=== PATIENT | female | born 1990 | race Caucasian/White ===

== ENCOUNTER 2019-10-21 14:15 | Emergency (ER) | payer MEDICAID ==
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
== END 2019-10-21 15:20 ==
LOC: LL.ED 14:15
DX: F41.8 Other specified anxiety disorders (principal)
CPT/HCPCS: 99284

== ENCOUNTER 2021-03-02 03:15 | Observation (INO) | payer MEDICAID ==
--- NOTE | 2021-03-02 03:29 | EDM.PDOC ---
ED HPI GENERAL MEDICAL PROBLEM - General Chief Complaint: Abdominal Pain Stated Complaint: Abd pain Time Seen by Provider: 03/02/21 03:25 Source of Information: Reports: Patient, Family (), Old Records ([facility] EMR. No paper hospital chart available.) History Limitations: Reports: No Limitations - History of Present Illness INITIAL COMMENTS - FREE TEXT/NARRATIVE: Patient was brought to the emergency room via private automobile by her for evaluation of 8/10 diffuse abdominal pain and cramping, which are occurring on an intermittent basis since about 11 AM yesterday morning. She has had similar type symptoms in the past with previous negative CT scan of the abdomen and pelvis. Her last oral intake was at 5 PM yesterday afternoon when she had tacos, however at least 10 episodes since onset of her symptoms yesterday morning. She has not taken any medications for symptoms to this point, however food intake and Sprite seem to help her symptoms? Her symptoms have worsened since about 2 AM this morning. No recent history of heartburn, diarrhea, melena, gross hematochezia, or any food intolerance, including fatty foods, etc. with normal bowel movement about 2-3 days ago. She denies any known exposure to infection, food poisoning, etc. The patient also denies any recent fever, cough, wheezing, dyspnea, etc.. The patient denies any chest pain/pressure, heart flutter, dizziness, orthostasis, orthopnea, diaphoresis, paresthesias, recent decreased exercise tolerance, or any other anginal-type symptoms. Onset: Gradual Onset Date: 03/01/21 Onset Time: 11:00 Duration: Getting Worse, Intermittent Location: Reports: Abdomen. Denies: Head, Face, Neck, Chest, Back, Pelvis, Upper Extremity, Left, Upper Extremity, Right, Radiates to Quality: Reports: Same as Previous Episode, Other (Cramping) Severity: Severe Improves with: Reports: None Worsens with: Reports: None Context: Reports: Other (As above). Denies: Sick Contact, Trauma Associated Symptoms: Reports: Nausea/Vomiting. 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 [No Known Home Meds] 04/08/20 [History] . [No Known Home Meds] 04/25/20 [History] Past Medical History HEENT History: Reports: Impaired Vision, Other (See Below). Denies: Allergic Rhinitis, Hard of Hearing, Otitis Media, Retinal Detachment Other HEENT History: The patient wears soft contact lenses and glasses. Cardiovascular History: Reports: Hypertension, Other (See Below). Denies: Afib, Aneurysm, Arrhythmia, Blood Clots/VTE/DVT, CAD, Heart Murmur, High Cholesterol, Syncope Other Cardiovascular History: She does not know her cholesterol status. Respiratory History: Reports: None. Denies: Asthma, Bronchitis, Recurrent, COPD, Intubation, Previous, PE, Pneumothorax, TB Gastrointestinal History: Reports: Diverticulosis, Other (See Below). Denies: Celiac Disease, Cholelithiasis, Chronic Constipation, Chronic Diarrhea, Fecal Incontinence, Gastritis, GERD, GI Bleed, Hepatitis, Inflammatory Bowel Disease, Irritable Bowel Syndrome, Jaundice, Pancreatitis, PUD Other Gastrointestinal History: Recurrent nonspecific abdominal pain with no history of diverticulitis. Genitourinary History: Reports: None. 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 Denies: Dysfunctional Uterine Bleeding, Endometriosis, Spontaneous : 1 Para: 1 LMP (Approximate): Other (See Below) Other PAINT MIXER MACHINE History: LMP 1 week ago, which was normal. Full term without complications during pregnancies or deliveries Musculoskeletal History: Reports: Fracture, Other (See Below). Denies: Amputation, Arthritis, Back Pain, Chronic, Gout, Neck Pain, Chronic, Osteoarthritis, RA, SLE Other Musculoskeletal History: Phalangeal fracture of digit number one of the right foot in 2008. Neurological History: Reports: None. Denies: Cerebral Aneurysms, Concussion, CVA, Headaches, Chronic, Head Trauma, Migraines, MS, Parkinson's, Seizure, TIA, Vertigo Psychiatric History: Reports: Anxiety, Depression, Psych Hospitalization(s) ([facility] on 10/21/2019 with suspected drug abuse at that time, which the patient denies). Denies: Abuse, Victim of, ADD, ADHD, Addiction, PTSD, Suicide Attempt, Suicidal Ideation Endocrine/Metabolic History: Reports: None. Denies: Diabetes, Gestational, Diabetes, Type I, Diabetes, Type II, Diabetes Mellitus, Type 3c, Hypothyroidism, IDDM, Obesity/BMI 30+ Hematologic History: Reports: None. Denies: Anemia, Blood Transfusion(s), Iron Deficiency Immunologic History: Reports: None. Denies: AIDS, HIV, SLE Oncologic (Cancer) History: Reports: None. Denies: Basal Cell Carcinoma, Breast, Cervix, Colon, Hodgkin's Lymphoma, Leukemia, Lymphoma, Malignant Melanoma, Non-Hodgkin's Lymphoma, Ovarian, Squamous Cell Carcinoma, Uterine Dermatologic History: Reports: Other (See Below). Denies: Eczema, Psoriasis Other Dermatologic History: Acne vulgaris - Infectious Disease History Infectious Disease History: Reports: Chicken Pox. Denies: C-Difficile, Measles, Meningitis, Mononucleosis, MRSA, Mumps, Novel Coronavirus (She has not had her COVID-19 immunizations.), Pertussis (Whooping Cough), Rheumatic Fever, Rubella, Scarlet Fever, Shingles, VRE - Past Surgical History Head Surgeries/Procedures: Reports: None HEENT Surgical History: Reports: Oral Surgery, Other (See Below). Denies: Adenoidectomy, Detached Retina, Eye Surgery, Laser Surgery, LASIK, Myringotomy w Tube(s), Naso-Sinus Surgery, Tonsillectomy Other HEENT Surgeries/Procedures: Matheny teeth extraction x2 at age 19 with additional multiple teeth extractions. Cardiovascular Surgical History: Reports: None. Denies: Varicose Respiratory Surgical History: Reports: None. Denies: Thoracentesis GI Surgical History: Denies: Appendectomy, Cholecystectomy, Colonoscopy, EGD, Hernia, Abdominal, Hernia, Inguinal, Hernia Repair/Other Female Surgical History: Reports: None. Denies: Breast Biopsy, Section, D&C, Hysterectomy, Oophorectomy, Salpingo-Oophorectomy, Tubal Ligation Endocrine Surgical History: Reports: None. Denies: Thyroid Biopsy Neurological Surgical History: Reports: None. Denies: C-Spine, Discectomy, Laminectomy, Lumbar Spine, Sacral Spine, Spinal Fusion, Thoracic Spine, Vertebroplasty Musculoskeletal Surgical History: Reports: ORIF, Other (See Below). Denies: Arthroscopic Procedure, Carpal Tunnel, Ganglion Cyst, Shoulder Surgery Other Musculoskeletal Surgeries/Procedures:: ORIF of right toe fracture in 2009. Oncologic Surgical History: Reports: None Dermatological Surgical History: Reports: None - Past Imaging History Past Imaging History: Reports: CAT Scan (CT of the abdomen and pelvis on 04/25/2020.), Ultrasound (Pelvic on 04/25/2020.) Social & Family History - Family History Family Medical History: Unobtainable (Patient was adopted.) - Tobacco Use Tobacco Use Status *Q: Current Every Day Tobacco User Tobacco Use Within Last Twelve Months: Cigarettes Years of Tobacco use: 18 Packs/Tins Daily: 0.5 Packs/Tins Daily Comment: Started smoking at about age 12 with maximum use of 1 pack/day. No tobacco use for 1 week. Used Tobacco, but Quit: Yes Smoking Cessation Information Provided To Patient: Yes Second Hand Smoke Exposure: No Second Hand Smoke Education Provided: No - Caffeine Use Caffeine Use: Reports: None. Denies: Coffee, Energy Drinks, Soda, Tea - Alcohol Use Alcohol Use History: No Days Per Week of Alcohol Use: 0 Number of Drinks Per Day: 0 Number of Drinks Per Day Comment: No previous DWIs, problems with alcohol abuse, etc. Total Drinks Per Week: 0 Alcohol Use in Last Twelve Months: No - Recreational Drug Use Recreational Drug Use: No Drug Use in Last 12 Months: No Recreational Drug Type: Denies: Amphetamines (Speed), Cocaine, Heroin, Inhalants (Glues, Solvents, Aerosols), LSD (Acid), Marijuana/Hashish, Methamphetamine, Morphine, Oxycodone - Living Situation & Occupation Living situation: Reports: (2012), with Family ( with her son being adopted by the patient's father secondary special needs of her son) Occupation: Unemployed ED ROS GENERAL - Review of Systems Review Of Systems: Comprehensive ROS is negative, except as noted in HPI. ED EXAM, GI/ABD - Physical Exam Exam: See Below Exam Limited By: No Limitations General Appearance: Alert, WD/WN, No Apparent Distress, Anxious (Moderate) Eyes: Bilateral: Normal Appearance (Soft contact lenses, no vertigo or nystagmus), EOMI (PERRLA) Ears: Normal External Exam, Normal Canal, Hearing Grossly Normal, Normal TMs Nose: Normal Inspection, Normal Mucosa, No Blood Throat/Mouth: Normal Lips, Normal Gums, Normal Oropharynx, Normal Voice, No Airway Compromise. No: Normal Teeth (Multiple missing teeth, including broken teeth with no acute caries), Dysphagia, Perioral Cyanosis Head: Atraumatic, Normocephalic. No: Facial Swelling, Facial Tenderness, Sinus Tenderness Neck: Normal Inspection, Supple, Non-Tender, Full Range of Motion. No: Carotid Bruit, Lymphadenopathy (L), Lymphadenopathy (R), Thyromegaly Respiratory/Chest: No Respiratory Distress, Lungs Clear, Normal Breath Sounds, No Accessory Muscle Use, Chest Non-Tender. No: Pleural Rub, Retractions Cardiovascular: Normal Peripheral Pulses, Regular Rate, Rhythm, No Edema, No Gallop, No JVD, No Murmur, No Rub. No: Gallop/S3, Gallop/S4, Friction Rub GI/Abdominal Exam: Normal Bowel Sounds, Soft, Non-Tender, No Organomegaly, No Distention, No Abnormal Bruit, No Mass, Pelvis Stable. No: Guarding, Rebound (Female) Exam: Deferred Rectal (Female) Exam: Deferred Back Exam: Normal Inspection, Full Range of Motion. No: CVA Tenderness (L), CVA Tenderness (R), Muscle Spasm Extremities: Normal Inspection, Normal Range of Motion, Non-Tender, No Pedal Edema, Normal Capillary Refill. No: Cristiana's Sign Neurological: Alert, Oriented, CN II-XII Intact, Normal Cognition, Normal Gait, Normal Reflexes (Negative Babinski's), No Motor/Sensory Deficits Psychiatric: Anxious (Moderate), Depressed Mood (Mild) Skin Exam: Warm, Dry, Intact, Normal Color, No Rash, Tattoo(s) (Multiple), Other (Moderate cystic acne vulgaris especially in the facial region). No: Diaphoretic, Wound/Incision Lymphatic: No Adenopathy Course - Vital Signs Last Recorded V/S: Last Vital Signs Temp 36.9 C 03/02/21 03:21 Pulse 64 03/02/21 03:21 Resp 16 03/02/21 03:21 BP 118/63 03/02/21 03:21 Pulse Ox 100 03/02/21 03:21 Vital Signs - 24 hr 03/02/21 03:21 Temperature [ 36.9 C Temporal] Pulse, 64 Peripheral [ Right Pulse Oximetry] Respiratory 16 Rate Blood Pressure 118/63 [Right Upper Arm] O2 Sat by Pulse 100 Oximetry - Orders/Labs/Meds Orders: Active Orders 24 hr Category Date Time Status Peripheral IV Care [RC] . DIRECTED Care 03/02/21 03:32 Active Nothing Per Oral Diet [DIET] Diet 03/02/21 Breakfast Active Abdomen Series w Chest 1V [CR] Stat Exams 03/02/21 03:30 Ordered CULTURE URINE [RM] Stat Lab 03/02/21 03:45 Received Sodium Chloride 0.9% [Saline Flush] Med 03/02/21 03:30 Active 10 ml FLUSH ASDIRECTED PRN Obtain Past Medical Record [OM.PC] Urgent Oth 03/02/21 03:30 Active Peripheral IV Insertion Adult [OM.PC] Stat Oth 03/02/21 03:30 Ordered Resuscitation Status Stat Resus Stat 03/02/21 03:30 Ordered Medication Orders Sodium Chloride (Sodium Chloride 0.9% 10 Ml Syringe) 10 ml FLUSH ASDIRECTED PRN PRN Reason: Keep Vein Open Last Admin: 03/02/21 03:49 Dose: 10 ml Documented by: ERIN Labs: Laboratory Tests 03/02/21 03/02/21 03/02/21 Range/Units 03:40 03:40 03:40 WBC 13.1 H (4.0-10.2) K/uL RBC 4.37 (3.77-5.09) M/uL Hgb 13.0 D (11.7-15.5) g/dL Hct 39.0 (34.0-46.0) % MCV 89.2 (84.0-98.0) fL MCH 29.7 (28.2-33.3) pg MCHC 33.3 (31.7-36.0) g/dL RDW 13.1 (11.2-14.1) % Plt Count 240 (150-350) K/uL Neut % (Auto) 70.5 (45.0-80.0) % Lymph % (Auto) 19.1 (10.0-50.0) % [place] % (Auto) 9.4 (2.0-14.0) % Eos % (Auto) 0.8 (0.0-5.0) % Baso % (Auto) 0.2 (0.0-2.0) % Neut # (Auto) 9.26 H (1.40-7.00) K/uL Lymph # (Auto) 2.51 (0.50-3.50) K/uL [place] # (Auto) 1.23 H (0.00-1.00) K/uL Eos # (Auto) 0.10 (0.00-0.50) K/uL Baso # (Auto) 0.02 (0.00-0.20) K/uL PT 17.2 H (9.5-12.0) SEC INR 1.7 APTT 39.1 H (24.5-32.8) SEC Sodium (136-145) mmol/L Potassium (3.5-5.1) mmol/L Chloride (98-107) mmol/L Carbon Dioxide (21.0-32.0) mmol/L BUN (7-18) mg/dL Creatinine (0.51-1.17) mg/dL Est Cr Clr Drug Dosing mL/min Estimated GFR (MDRD) mL/min Glucose (70-99) mg/dL Lactic Acid (0.4-2.0) mmol/L Uric Acid (2.6-7.2) mg/dL Calcium (8.5-10.1) mg/dL Magnesium (1.8-2.4) mg/dL Total Bilirubin (0.2-1.0) mg/dL AST (15-37) U/L ALT (12-78) U/L Alkaline Phosphatase (46-116) IU/L Total Protein (6.4-8.2) g/dL Albumin (3.4-5.0) g/dL Amylase 79 (25-115) U/L Lipase (73-393) U/L HCG, Qual (NEGATIVE) Specimen Type Urine Color Urine Appearance Urine pH (5.0-9.0) Ur Specific [place] (1.005-1.030) Urine Protein (NEGATIVE) mg/dL Urine Glucose (UA) (NEGATIVE) mg/dL Urine Ketones (NEGATIVE) mg/dL Urine Occult Blood (NEGATIVE) Urine Nitrite (NEGATIVE) Urine Bilirubin (NEGATIVE) Urine Urobilinogen (0.2-1.0) E.U./dL Ur Leukocyte Esterase (NEGATIVE) Urine RBC /HPF Urine WBC /HPF Ur Epithelial Cells /LPF Urine Bacteria (NONE TO FEW) /HPF Urine Mucus (NEGATIVE) /LPF Urine Opiates Screen (NEGATIVE) Ur Buprenorphine Scrn (NEGATIVE) Ur Oxycodone Screen (NEGATIVE) Ur EDDP (Meth Metab) (NEGATIVE) Ur Barbiturates Screen (NEGATIVE) Ur Tricyclics Screen (NEGATIVE) Ur Amphetamine Screen (NEGATIVE) U Methamphetamines Scrn (NEGATIVE) Urine MDMA Screen (NEGATIVE) U Benzodiazepines Scrn (NEGATIVE) U Cocaine Metab Screen (NEGATIVE) U Marijuana (THC) Screen (NEGATIVE) Ethyl Alcohol (0.000-0.080) g/dL SARS-CoV-2 RNA (DAMIAN) (NEGATIVE) 03/02/21 03/02/21 03/02/21 Range/Units 03:40 03:40 03:40 WBC (4.0-10.2) K/uL RBC (3.77-5.09) M/uL Hgb (11.7-15.5) g/dL Hct (34.0-46.0) % MCV (84.0-98.0) fL MCH (28.2-33.3) pg MCHC (31.7-36.0) g/dL RDW (11.2-14.1) % Plt Count (150-350) K/uL Neut % (Auto) (45.0-80.0) % Lymph % (Auto) (10.0-50.0) % [place] % (Auto) (2.0-14.0) % Eos % (Auto) (0.0-5.0) % Baso % (Auto) (0.0-2.0) % Neut # (Auto) (1.40-7.00) K/uL Lymph # (Auto) (0.50-3.50) K/uL [place] # (Auto) (0.00-1.00) K/uL Eos # (Auto) (0.00-0.50) K/uL Baso # (Auto) (0.00-0.20) K/uL PT (9.5-12.0) SEC INR APTT (24.5-32.8) SEC Sodium 140 (136-145) mmol/L Potassium 3.8 (3.5-5.1) mmol/L Chloride 103 (98-107) mmol/L Carbon Dioxide 24.0 (21.0-32.0) mmol/L BUN 12 (7-18) mg/dL Creatinine 0.66 (0.51-1.17) mg/dL Est Cr Clr Drug Dosing 112.15 mL/min Estimated GFR (MDRD) > 60 mL/min Glucose 94 (70-99) mg/dL Lactic Acid 1.6 (0.4-2.0) mmol/L Uric Acid 3.1 (2.6-7.2) mg/dL Calcium 8.3 L (8.5-10.1) mg/dL Magnesium 1.8 (1.8-2.4) mg/dL Total Bilirubin 0.5 (0.2-1.0) mg/dL AST 33 (15-37) U/L ALT 44 (12-78) U/L Alkaline Phosphatase 96 (46-116) IU/L Total Protein 7.4 (6.4-8.2) g/dL Albumin 3.6 (3.4-5.0) g/dL Amylase (25-115) U/L Lipase 68 L (73-393) U/L HCG, Qual Negative (NEGATIVE) Specimen Type Urine Color Urine Appearance Urine pH (5.0-9.0) Ur Specific [place] (1.005-1.030) Urine Protein (NEGATIVE) mg/dL Urine Glucose (UA) (NEGATIVE) mg/dL Urine Ketones (NEGATIVE) mg/dL Urine Occult Blood (NEGATIVE) Urine Nitrite (NEGATIVE) Urine Bilirubin (NEGATIVE) Urine Urobilinogen (0.2-1.0) E.U./dL Ur Leukocyte Esterase (NEGATIVE) Urine RBC /HPF Urine WBC /HPF Ur Epithelial Cells /LPF Urine Bacteria (NONE TO FEW) /HPF Urine Mucus (NEGATIVE) /LPF Urine Opiates Screen (NEGATIVE) Ur Buprenorphine Scrn (NEGATIVE) Ur Oxycodone Screen (NEGATIVE) Ur EDDP (Meth Metab) (NEGATIVE) Ur Barbiturates Screen (NEGATIVE) Ur Tricyclics Screen (NEGATIVE) Ur Amphetamine Screen (NEGATIVE) U Methamphetamines Scrn (NEGATIVE) Urine MDMA Screen (NEGATIVE) U Benzodiazepines Scrn (NEGATIVE) U Cocaine Metab Screen (NEGATIVE) U Marijuana (THC) Screen (NEGATIVE) Ethyl Alcohol (0.000-0.080) g/dL SARS-CoV-2 RNA (DAMIAN) (NEGATIVE) 03/02/21 03/02/21 03/02/21 Range/Units 03:40 03:45 03:45 WBC (4.0-10.2) K/uL RBC (3.77-5.09) M/uL Hgb (11.7-15.5) g/dL Hct (34.0-46.0) % MCV (84.0-98.0) fL MCH (28.2-33.3) pg MCHC (31.7-36.0) g/dL RDW (11.2-14.1) % Plt Count (150-350) K/uL Neut % (Auto) (45.0-80.0) % Lymph % (Auto) (10.0-50.0) % [place] % (Auto) (2.0-14.0) % Eos % (Auto) (0.0-5.0) % Baso % (Auto) (0.0-2.0) % Neut # (Auto) (1.40-7.00) K/uL Lymph # (Auto) (0.50-3.50) K/uL [place] # (Auto) (0.00-1.00) K/uL Eos # (Auto) (0.00-0.50) K/uL Baso # (Auto) (0.00-0.20) K/uL PT (9.5-12.0) SEC INR APTT (24.5-32.8) SEC Sodium (136-145) mmol/L Potassium (3.5-5.1) mmol/L Chloride (98-107) mmol/L Carbon Dioxide (21.0-32.0) mmol/L BUN (7-18) mg/dL Creatinine (0.51-1.17) mg/dL Est Cr Clr Drug Dosing mL/min Estimated GFR (MDRD) mL/min Glucose (70-99) mg/dL Lactic Acid (0.4-2.0) mmol/L Uric Acid (2.6-7.2) mg/dL Calcium (8.5-10.1) mg/dL Magnesium (1.8-2.4) mg/dL Total Bilirubin (0.2-1.0) mg/dL AST (15-37) U/L ALT (12-78) U/L Alkaline Phosphatase (46-116) IU/L Total Protein (6.4-8.2) g/dL Albumin (3.4-5.0) g/dL Amylase (25-115) U/L Lipase (73-393) U/L HCG, Qual (NEGATIVE) Specimen Type Urinvoid Urine Color Yellow Urine Appearance Cloudy Urine pH 5.5 (5.0-9.0) Ur Specific [place] >= 1.030 (1.005-1.030) Urine Protein 30 H (NEGATIVE) mg/dL Urine Glucose (UA) Negative (NEGATIVE) mg/dL Urine Ketones Negative (NEGATIVE) mg/dL Urine Occult Blood Trace-intact H (NEGATIVE) Urine Nitrite Negative (NEGATIVE) Urine Bilirubin Small H (NEGATIVE) Urine Urobilinogen 0.2 (0.2-1.0) E.U./dL Ur Leukocyte Esterase Negative (NEGATIVE) Urine RBC 5-10 H /HPF Urine WBC 0-5 /HPF Ur Epithelial Cells Few /LPF Urine Bacteria Occasional (NONE TO FEW) /HPF Urine Mucus Occasional H (NEGATIVE) /LPF Urine Opiates Screen Negative (NEGATIVE) Ur Buprenorphine Scrn Negative (NEGATIVE) Ur Oxycodone Screen Negative (NEGATIVE) Ur EDDP (Meth Metab) Negative (NEGATIVE) Ur Barbiturates Screen Negative (NEGATIVE) Ur Tricyclics Screen Negative (NEGATIVE) Ur Amphetamine Screen Negative (NEGATIVE) U Methamphetamines Scrn Negative (NEGATIVE) Urine MDMA Screen Positive H (NEGATIVE) U Benzodiazepines Scrn Negative (NEGATIVE) U Cocaine Metab Screen Negative (NEGATIVE) U Marijuana (THC) Screen Positive H (NEGATIVE) Ethyl Alcohol < 3.000 H (0.000-0.080) g/dL SARS-CoV-2 RNA (DAMIAN) (NEGATIVE) 03/02/21 Range/Units 03:48 WBC (4.0-10.2) K/uL RBC (3.77-5.09) M/uL Hgb (11.7-15.5) g/dL Hct (34.0-46.0) % MCV (84.0-98.0) fL MCH (28.2-33.3) pg MCHC (31.7-36.0) g/dL RDW (11.2-14.1) % Plt Count (150-350) K/uL Neut % (Auto) (45.0-80.0) % Lymph % (Auto) (10.0-50.0) % [place] % (Auto) (2.0-14.0) % Eos % (Auto) (0.0-5.0) % Baso % (Auto) (0.0-2.0) % Neut # (Auto) (1.40-7.00) K/uL Lymph # (Auto) (0.50-3.50) K/uL [place] # (Auto) (0.00-1.00) K/uL Eos # (Auto) (0.00-0.50) K/uL Baso # (Auto) (0.00-0.20) K/uL PT (9.5-12.0) SEC INR APTT (24.5-32.8) SEC Sodium (136-145) mmol/L Potassium (3.5-5.1) mmol/L Chloride (98-107) mmol/L Carbon Dioxide (21.0-32.0) mmol/L BUN (7-18) mg/dL Creatinine (0.51-1.17) mg/dL Est Cr Clr Drug Dosing mL/min Estimated GFR (MDRD) mL/min Glucose (70-99) mg/dL Lactic Acid (0.4-2.0) mmol/L Uric Acid (2.6-7.2) mg/dL Calcium (8.5-10.1) mg/dL Magnesium (1.8-2.4) mg/dL Total Bilirubin (0.2-1.0) mg/dL AST (15-37) U/L ALT (12-78) U/L Alkaline Phosphatase (46-116) IU/L Total Protein (6.4-8.2) g/dL Albumin (3.4-5.0) g/dL Amylase (25-115) U/L Lipase (73-393) U/L HCG, Qual (NEGATIVE) Specimen Type Urine Color Urine Appearance Urine pH (5.0-9.0) Ur Specific [place] (1.005-1.030) Urine Protein (NEGATIVE) mg/dL Urine Glucose (UA) (NEGATIVE) mg/dL Urine Ketones (NEGATIVE) mg/dL Urine Occult Blood (NEGATIVE) Urine Nitrite (NEGATIVE) Urine Bilirubin (NEGATIVE) Urine Urobilinogen (0.2-1.0) E.U./dL Ur Leukocyte Esterase (NEGATIVE) Urine RBC /HPF Urine WBC /HPF Ur Epithelial Cells /LPF Urine Bacteria (NONE TO FEW) /HPF Urine Mucus (NEGATIVE) /LPF Urine Opiates Screen (NEGATIVE) Ur Buprenorphine Scrn (NEGATIVE) Ur Oxycodone Screen (NEGATIVE) Ur EDDP (Meth Metab) (NEGATIVE) Ur Barbiturates Screen (NEGATIVE) Ur Tricyclics Screen (NEGATIVE) Ur Amphetamine Screen (NEGATIVE) U Methamphetamines Scrn (NEGATIVE) Urine MDMA Screen (NEGATIVE) U Benzodiazepines Scrn (NEGATIVE) U Cocaine Metab Screen (NEGATIVE) U Marijuana (THC) Screen (NEGATIVE) Ethyl Alcohol (0.000-0.080) g/dL SARS-CoV-2 RNA (DAMIAN) Negative (NEGATIVE) Urine specimen set up for culture and sensitivity. Meds: Medications Generic Name Dose Route Start Last Admin Trade Name Freq PRN Reason Stop Dose Admin Sodium Chloride 10 ml 03/02/21 03:30 03/02/21 03:49 Sodium Chloride 0.9% 10 Ml Syringe FLUSH 10 ml ASDIRECTED PRN Administration Keep Vein Open Discontinued Medications Generic Name Dose Route Start Last Admin Trade Name Freq PRN Reason Stop Dose Admin Al Hydroxide/Mg Hydroxide 30 ml 03/02/21 04:21 03/02/21 04:35 Gi Cocktail Oral Solution 30 Ml PO 03/02/21 04:22 30 ml ONETIME ONE Administration Famotidine 40 mg 03/02/21 03:30 03/02/21 03:48 Famotidine 20 Mg/2 Ml Sdv IVPUSH 03/02/21 03:31 40 mg ONETIME ONE Administration Lactated Ringer's 1,000 mls @ 999 mls/hr 03/02/21 03:30 03/02/21 03:48 Ringers, Lactated IV 03/02/21 04:30 999 mls/hr .BOLUS ONE Administration Ondansetron HCl 4 mg 03/02/21 03:30 03/02/21 03:48 Ondansetron 4 Mg/2 Ml Sdv IVPUSH 03/02/21 03:31 4 mg ONETIME ONE Administration Pantoprazole Sodium 40 mg 03/02/21 03:30 03/02/21 03:48 Pantoprazole 40 Mg Vial IVPUSH 03/02/21 03:31 40 mg ONETIME ONE Administration Departure - Departure Time of Disposition: 04:40 Disposition: Refer to Observation Condition: Good Clinical Impression: Mixed anxiety depressive disorder Abdominal pain Qualifiers: Abdominal location: generalized Qualified Code(s): R10.84 - Generalized abdominal pain - Discharge Information *PRESCRIPTION DRUG MONITORING PROGRAM REVIEWED*: Not Applicable *COPY OF PRESCRIPTION DRUG MONITORING REPORT IN PATIENT NICOLE: Not Applicable Forms: ED Department Discharge Care Plan Goals: See plan Sepsis Event Note (ED) - Evaluation Sepsis Screening Result: No Definite Risk - Focused Exam Vital Signs: Vital Signs Temp Pulse Resp BP Pulse Ox 03/02/21 03:21 36.9 C 64 16 118/63 100 - Problem List & Annotations (1) Abdominal pain SNOMED Code(s): 91011953 Code(s): R10.9 - UNSPECIFIED ABDOMINAL PAIN Status: Acute Priority: High Current Visit: Yes Onset Date: 03/01/21 Annotation/Comment:: Overall good initial results with treatment in the emergency room as above. High-dose IV Pepcid and IV Protonix given in the emergency room with additional IV Zofran given for dry heaves. Subsequent return of symptoms with green lizard required. Various therapeutic options were discussed with the patient, who is requesting placement in observation status in this facility. Note recent negative CT scan of the abdomen pelvis on 04/25/2020 with no indication for repeating this study at this time. Ultrasound is not available in this facility until 03/05. Further GI work-up recommended on an outpatient basis, including initial abdominal ultrasound and probable subsequent HIDA scan in this facility with close follow- up by her new regular provider, since she currently does not have a primary care provider. Additional GI work-up depending on her clinical course, including possible EGD, colonoscopy, etc.. No direct evidence of diverticulitis at this time, however IV Rocephin and IV Flagyl will be initiated as GI prophylaxis secondary to some mild leukocytosis, which may be related to a stress reaction s econdary to her recurrent emesis. Qualifiers: Abdominal location: generalized Qualified Code(s): R10.84 - Generalized abdominal pain (2) Mixed anxiety depressive disorder SNOMED Code(s): 312874471 Code(s): F41.8 - OTHER SPECIFIED ANXIETY DISORDERS Status: Acute Priority: High Current Visit: No Onset Date: ~10/21/19 Annotation/Comment:: Moderate control based on today's exam. Consider initiation of medical therapy during this hospitalization and/or close follow-up by regular provider. Note positive urine drug screen for marijuana, which the patient denies, although possible indirect marijuana exposure? Note previous suspected drug abuse in the past from previous ER evaluation in this facility as above. IV Protonix was given in this facility after urine specimen was obtained. - Problem List Review Problem List Initiated/Reviewed/Updated: Yes - My Orders Last 24 Hours: My Active Orders 03/02/21 03:30 Abdomen Series w Chest 1V [CR] Stat Sodium Chloride 0.9% [Saline Flush] 10 ml FLUSH ASDIRECTED PRN Obtain Past Medical Record [OM.PC] Urgent Peripheral IV Insertion Adult [OM.PC] Stat Resuscitation Status Stat 03/02/21 03:32 Peripheral IV Care [RC] . DIRECTED 03/02/21 03:45 CULTURE URINE [RM] Stat 03/02/21 Breakfast Nothing Per Oral Diet [DIET] - Assessment/Plan Last 24 Hours: My Active Orders 03/02/21 03:30 Abdomen Series w Chest 1V [CR] Stat Sodium Chloride 0.9% [Saline Flush] 10 ml FLUSH ASDIRECTED PRN Obtain Past Medical Record [OM.PC] Urgent Peripheral IV Insertion Adult [OM.PC] Stat Resuscitation Status Stat 03/02/21 03:32 Peripheral IV Care [RC] . DIRECTED 03/02/21 03:45 CULTURE URINE [RM] Stat 03/02/21 Breakfast Nothing Per Oral Diet [DIET] Assessment:: As above Plan: As above. Extensive precautions were given to the patient and her , who are in agreement with the treatment plan. The patient's condition is stable enough for observation status and general supervision. [facility] physician assumes patient's care later today.
[2021-03-02] MEDS ORDERED: Famotidine 20 MG/2 ML SDV IVPUSH ONE (03:30)
[2021-03-02] MEDS ORDERED: Ondansetron 4 MG/2 ML SDV IVPUSH ONE (03:30)
[2021-03-02] MEDS ORDERED: Lactated Ringers 1,000 ML IV ONE (03:30)
[2021-03-02] MEDS ORDERED: Pantoprazole 40 MG Vial IVPUSH ONE (03:30)
[2021-03-02] MEDS: Sodium Chloride 0.9% 10 ML Syringe FLUSH PRN ×6 (03:49→14:59)
[2021-03-02 04:14] LABS: CHLORIDE,CL 103 mmol/L (98-107); SODIUM,NA 140 mmol/L (136-145)
[2021-03-02] MEDS ORDERED: GI Cocktail Oral Solution 30 ML PO ONE (04:21)
[2021-03-02 04:27] LABS: PTT,PARTIAL THROMBOPLSTIN TIME 39.1 SEC (24.5-32.8)
[2021-03-02 04:32] LABS: BARBITURATE SCREEN,URINE NEGATIVE (NEGATIVE); BENZODIAZEPINES SCREEN,URINE NEGATIVE (NEGATIVE); EDDP,URINE SCREEN NEGATIVE (NEGATIVE); TCA SCREEN,URINE NEGATIVE (NEGATIVE); THC SCREEN,URINE 50 NG/ML POSITIVE (NEGATIVE)
[2021-03-02] MEDS ORDERED: Acetaminophen 325 MG Tab PO PRN (04:57)
[2021-03-02] MEDS ORDERED: D5 1/2 NS w/ 20 mEq/L KCl 1,000 ML IV SCH (05:00)
[2021-03-02] MEDS: Ondansetron 4 MG/2 ML SDV IVPUSH PRN ×2 (05:30→11:32)
[2021-03-02] MEDS: cefTRIAXone 1 GM in Sodium Chloride 0.9% 100 ML IV SCH ×2 (05:31→19:36)
[2021-03-02] MEDS: metroNIDAZOLE/Normal Saline 500 MG in Premix Bag 1 BAG IV SCH ×2 (06:03→13:40)
[2021-03-02] MEDS ORDERED: Sodium Chloride 0.9% 10 ML Syringe FLUSH SCH (08:00)
[2021-03-02] MEDS ORDERED: Pantoprazole 40 MG Vial IVPUSH SCH (15:00)
--- NOTE | 2021-03-02 19:40 | PCM.DCSUM1 ---
Discharge Summary - Hospital Course Brief History: Patient admitted for further evaluation and treatment of abdominal pain Diagnosis: Stroke: No - Discharge Data Discharge Date: 03/02/21 Discharge Disposition: Home, Self-Care 01 Condition: Good - Referral to Home Health Primary Care Physician: PCP Unknown - Discharge Diagnosis/Problem(s) (1) Abdominal pain SNOMED Code(s): 81529756 ICD Code: R10.9 - UNSPECIFIED ABDOMINAL PAIN Status: Acute Priority: High Current Visit: Yes Onset Date: 03/01/21 Problem Details: Overall good initial results with treatment in the emergency room with high-dose IV Pepcid and IV Protonix and additional IV Zofran given for dry heaves. Subsequent return of symptoms with green lizard required. Various therapeutic options were discussed with the patient, who is requesting placement in observation status in this facility. Note recent negative CT scan of the abdomen pelvis on 04/25/2020 with no indication for repeating this study at this time. Ultrasound is not available in this facility until 03/05. Further GI work-up recommended on an outpatient basis, including initial abdominal ultrasound and probable subsequent HIDA scan in this facility with close follow-up by her new regular provider, since she currently does not have a primary care provider. No direct evidence of diverticulitis at this time, however IV Rocephin and IV Flagyl was initiated as GI prophylaxis secondary to some mild leukocytosis, which may have been related to a stress reaction secondary to her recurrent emesis. Patient currently is asymptomatic and wishes to be discharged home. Note + THC and MDMA on drug screen. Consider cannabis-induced hyperemesis as part of differential for potential cause of patient's ongoing issues with intermittent abdominal pain. Qualifiers: Abdominal location: generalized Qualified Code(s): R10.84 - Generalized abdominal pain (2) Positive urine drug screen SNOMED Code(s): 420257874, [id number] ICD Code: R82.5 - ELEVATED URINE LEVELS OF DRUG/MEDS/BIOL SUBST Status: Acute Priority: High Current Visit: Yes Problem Details: Patient + for THC and MDMA. She denies exposure to these. As noted above cannabis-induced abdominal pain/emesis should be considered within the differential as cause for her ongoing issues with intermittent abdominal pain. (3) Mixed anxiety depressive disorder SNOMED Code(s): 201289872 ICD Code: F41.8 - OTHER SPECIFIED ANXIETY DISORDERS Status: Acute Priority: High Current Visit: No Onset Date: ~10/21/19 Problem Details: M oderate control based on today's exam. Recommended to patient that she establish care with a primary provider for follow up. Note positive urine drug screen for marijuana and MDMA, which the patient denies. Note previous suspected drug abuse in the past from previous ER evaluation in this facility as above. - Patient Summary/Data Hospital Course: Patient improved after admission. Was requesting discharge home late afternoon. Denied any continued symptoms/abdominal pain. Eating and drinking. Vital signs stable. Discussed importance of establishing care with a primary care provider for follow up of above concerns. Also discussed avoidance of THC as it can be linked to abdominal pain and vomiting in a subset of people. She gave a vague story of being + for THC and MDMA as being related to a time when her father sent her to the "[facility] for 90 days". She was encouraged to avoid using illicit drugs in general. - Patient Instructions Diet: Usual Diet as Tolerated Activity: As Tolerated Showering/Bathing: May Shower Other/Special Instructions: Find a primary clinic so that you can have a regular health care provider. Follow up with them for your general health concerns, including the abdominal pain etc. Follow up otherwise as needed if you have additional problems. Remember to avoid weed for a couple of months and see if that helps your abdomnal pain issues as it can trigger vomiting and bad abdominal cramping. - Discharge Plan *PRESCRIPTION DRUG MONITORING PROGRAM REVIEWED*: Not Applicable *COPY OF PRESCRIPTION DRUG MONITORING REPORT IN PATIENT NICOLE: Not Applicable Home Medications: Home Meds . [No Known Home Meds] 04/08/20 [History] . [No Known Home Meds] 04/25/20 [History] Forms: ED Department Discharge Referrals: PCP,Unknown [Primary Care Provider] - - Discharge Summary/Plan Comment DC Time >30 min.: No - General Info Date of Service: 03/02/21 Admission Dx/Problem (Free Text: Abdominal pain Subjective Update: Patient feels fine. No complaints. Functional Status: Reports: Pain Controlled, Tolerating Diet, Ambulating, Urinating. Denies: New Symptoms - Review of Systems General: Reports: No Symptoms HEENT: Reports: No Symptoms Pulmonary: Reports: No Symptoms Cardiovascular: Reports: No Symptoms Gastrointestinal: Reports: No Symptoms Genitourinary: Reports: No Symptoms Musculoskeletal: Reports: No Symptoms Skin: Reports: No Symptoms Neurological: Reports: No Symptoms Psychiatric: Reports: No Symptoms - Patient Data Vitals - Most Recent: Last Vital Signs Temp 36.9 C 03/02/21 16:00 Pulse 58 L 03/02/21 16:00 Resp 14 03/02/21 16:00 BP 121/68 03/02/21 16:00 Pulse Ox 99 03/02/21 16:00 Weight - Most Recent: 63.219 kg I&O - Last 24 hours: Intake & Output 03/02/21 03/02/21 03/02/21 06:59 14:59 22:59 Intake Total 1200 1220 Balance 1200 1220 Lab Results - Last 24 hrs: Laboratory Results - last 24 hr 03/02/21 03/02/21 03/02/21 Range/Units 03:40 03:40 03:40 WBC 13.1 H (4.0-10.2) K/uL RBC 4.37 (3.77-5.09) M/uL Hgb 13.0 D (11.7-15.5) g/dL Hct 39.0 (34.0-46.0) % MCV 89.2 (84.0-98.0) fL MCH 29.7 (28.2-33.3) pg MCHC 33.3 (31.7-36.0) g/dL RDW 13.1 (11.2-14.1) % Plt Count 240 (150-350) K/uL Neut % (Auto) 70.5 (45.0-80.0) % Lymph % (Auto) 19.1 (10.0-50.0) % [place] % (Auto) 9.4 (2.0-14.0) % Eos % (Auto) 0.8 (0.0-5.0) % Baso % (Auto) 0.2 (0.0-2.0) % Neut # (Auto) 9.26 H (1.40-7.00) K/uL Lymph # (Auto) 2.51 (0.50-3.50) K/uL [place] # (Auto) 1.23 H (0.00-1.00) K/uL Eos # (Auto) 0.10 (0.00-0.50) K/uL Baso # (Auto) 0.02 (0.00-0.20) K/uL PT 17.2 H (9.5-12.0) SEC INR 1.7 APTT 39.1 H (24.5-32.8) SEC Sodium (136-145) mmol/L Potassium (3.5-5.1) mmol/L Chloride (98-107) mmol/L Carbon Dioxide (21.0-32.0) mmol/L BUN (7-18) mg/dL Creatinine (0.51-1.17) mg/dL Est Cr Clr Drug Dosing mL/min Estimated GFR (MDRD) mL/min Glucose (70-99) mg/dL Lactic Acid (0.4-2.0) mmol/L Uric Acid (2.6-7.2) mg/dL Calcium (8.5-10.1) mg/dL Magnesium (1.8-2.4) mg/dL Total Bilirubin (0.2-1.0) mg/dL AST (15-37) U/L ALT (12-78) U/L Alkaline Phosphatase (46-116) IU/L Total Protein (6.4-8.2) g/dL Albumin (3.4-5.0) g/dL Amylase 79 (25-115) U/L Lipase (73-393) U/L HCG, Qual (NEGATIVE) Specimen Type Urine Color Urine Appearance Urine pH (5.0-9.0) Ur Specific [place] (1.005-1.030) Urine Protein (NEGATIVE) mg/dL Urine Glucose (UA) (NEGATIVE) mg/dL Urine Ketones (NEGATIVE) mg/dL Urine Occult Blood (NEGATIVE) Urine Nitrite (NEGATIVE) Urine Bilirubin (NEGATIVE) Urine Urobilinogen (0.2-1.0) E.U./dL Ur Leukocyte Esterase (NEGATIVE) Urine RBC /HPF Urine WBC /HPF Ur Epithelial Cells /LPF Urine Bacteria (NONE TO FEW) /HPF Urine Mucus (NEGATIVE) /LPF Urine Opiates Screen (NEGATIVE) Ur Buprenorphine Scrn (NEGATIVE) Ur Oxycodone Screen (NEGATIVE) Ur EDDP (Meth Metab) (NEGATIVE) Ur Barbiturates Screen (NEGATIVE) Ur Tricyclics Screen (NEGATIVE) Ur Amphetamine Screen (NEGATIVE) U Methamphetamines Scrn (NEGATIVE) Urine MDMA Screen (NEGATIVE) U Benzodiazepines Scrn (NEGATIVE) U Cocaine Metab Screen (NEGATIVE) U Marijuana (THC) Screen (NEGATIVE) Ethyl Alcohol (0.000-0.080) g/dL SARS-CoV-2 RNA (DAMIAN) (NEGATIVE) 03/02/21 03/02/21 03/02/21 Range/Units 03:40 03:40 03:40 WBC (4.0-10.2) K/uL RBC (3.77-5.09) M/uL Hgb (11.7-15.5) g/dL Hct (34.0-46.0) % MCV (84.0-98.0) fL MCH (28.2-33.3) pg MCHC (31.7-36.0) g/dL RDW (11.2-14.1) % Plt Count (150-350) K/uL Neut % (Auto) (45.0-80.0) % Lymph % (Auto) (10.0-50.0) % [place] % (Auto) (2.0-14.0) % Eos % (Auto) (0.0-5.0) % Baso % (Auto) (0.0-2.0) % Neut # (Auto) (1.40-7.00) K/uL Lymph # (Auto) (0.50-3.50) K/uL [place] # (Auto) (0.00-1.00) K/uL Eos # (Auto) (0.00-0.50) K/uL Baso # (Auto) (0.00-0.20) K/uL PT (9.5-12.0) SEC INR APTT (24.5-32.8) SEC Sodium 140 (136-145) mmol/L Potassium 3.8 (3.5-5.1) mmol/L Chloride 103 (98-107) mmol/L Carbon Dioxide 24.0 (21.0-32.0) mmol/L BUN 12 (7-18) mg/dL Creatinine 0.66 (0.51-1.17) mg/dL Est Cr Clr Drug Dosing 112.15 mL/min Estimated GFR (MDRD) > 60 mL/min Glucose 94 (70-99) mg/dL Lactic Acid 1.6 (0.4-2.0) mmol/L Uric Acid 3.1 (2.6-7.2) mg/dL Calcium 8.3 L (8.5-10.1) mg/dL Magnesium 1.8 (1.8-2.4) mg/dL Total Bilirubin 0.5 (0.2-1.0) mg/dL AST 33 (15-37) U/L ALT 44 (12-78) U/L Alkaline Phosphatase 96 (46-116) IU/L Total Protein 7.4 (6.4-8.2) g/dL Albumin 3.6 (3.4-5.0) g/dL Amylase (25-115) U/L Lipase 68 L (73-393) U/L HCG, Qual Negative (NEGATIVE) Specimen Type Urine Color Urine Appearance Urine pH (5.0-9.0) Ur Specific [place] (1.005-1.030) Urine Protein (NEGATIVE) mg/dL Urine Glucose (UA) (NEGATIVE) mg/dL Urine Ketones (NEGATIVE) mg/dL Urine Occult Blood (NEGATIVE) Urine Nitrite (NEGATIVE) Urine Bilirubin (NEGATIVE) Urine Urobilinogen (0.2-1.0) E.U./dL Ur Leukocyte Esterase (NEGATIVE) Urine RBC /HPF Urine WBC /HPF Ur Epithelial Cells /LPF Urine Bacteria (NONE TO FEW) /HPF Urine Mucus (NEGATIVE) /LPF Urine Opiates Screen (NEGATIVE) Ur Buprenorphine Scrn (NEGATIVE) Ur Oxycodone Screen (NEGATIVE) Ur EDDP (Meth Metab) (NEGATIVE) Ur Barbiturates Screen (NEGATIVE) Ur Tricyclics Screen (NEGATIVE) Ur Amphetamine Screen (NEGATIVE) U Methamphetamines Scrn (NEGATIVE) Urine MDMA Screen (NEGATIVE) U Benzodiazepines Scrn (NEGATIVE) U Cocaine Metab Screen (NEGATIVE) U Marijuana (THC) Screen (NEGATIVE) Ethyl Alcohol (0.000-0.080) g/dL SARS-CoV-2 RNA (DAMIAN) (NEGATIVE) 03/02/21 03/02/21 03/02/21 Range/Units 03:40 03:45 03:45 WBC (4.0-10.2) K/uL RBC (3.77-5.09) M/uL Hgb (11.7-15.5) g/dL Hct (34.0-46.0) % MCV (84.0-98.0) fL MCH (28.2-33.3) pg MCHC (31.7-36.0) g/dL RDW (11.2-14.1) % Plt Count (150-350) K/uL Neut % (Auto) (45.0-80.0) % Lymph % (Auto) (10.0-50.0) % [place] % (Auto) (2.0-14.0) % Eos % (Auto) (0.0-5.0) % Baso % (Auto) (0.0-2.0) % Neut # (Auto) (1.40-7.00) K/uL Lymph # (Auto) (0.50-3.50) K/uL [place] # (Auto) (0.00-1.00) K/uL Eos # (Auto) (0.00-0.50) K/uL Baso # (Auto) (0.00-0.20) K/uL PT (9.5-12.0) SEC INR APTT (24.5-32.8) SEC Sodium (136-145) mmol/L Potassium (3.5-5.1) mmol/L Chloride (98-107) mmol/L Carbon Dioxide (21.0-32.0) mmol/L BUN (7-18) mg/dL Creatinine (0.51-1.17) mg/dL Est Cr Clr Drug Dosing mL/min Estimated GFR (MDRD) mL/min Glucose (70-99) mg/dL Lactic Acid (0.4-2.0) mmol/L Uric Acid (2.6-7.2) mg/dL Calcium (8.5-10.1) mg/dL Magnesium (1.8-2.4) mg/dL Total Bilirubin (0.2-1.0) mg/dL AST (15-37) U/L ALT (12-78) U/L Alkaline Phosphatase (46-116) IU/L Total Protein (6.4-8.2) g/dL Albumin (3.4-5.0) g/dL Amylase (25-115) U/L Lipase (73-393) U/L HCG, Qual (NEGATIVE) Specimen Type Urinvoid Urine Color Yellow Urine Appearance Cloudy Urine pH 5.5 (5.0-9.0) Ur Specific [place] >= 1.030 (1.005-1.030) Urine Protein 30 H (NEGATIVE) mg/dL Urine Glucose (UA) Negative (NEGATIVE) mg/dL Urine Ketones Negative (NEGATIVE) mg/dL Urine Occult Blood Trace-intact H (NEGATIVE) Urine Nitrite Negative (NEGATIVE) Urine Bilirubin Small H (NEGATIVE) Urine Urobilinogen 0.2 (0.2-1.0) E.U./dL Ur Leukocyte Esterase Negative (NEGATIVE) Urine RBC 5-10 H /HPF Urine WBC 0-5 /HPF Ur Epithelial Cells Few /LPF Urine Bacteria Occasional (NONE TO FEW) /HPF Urine Mucus Occasional H (NEGATIVE) /LPF Urine Opiates Screen Negative (NEGATIVE) Ur Buprenorphine Scrn Negative (NEGATIVE) Ur Oxycodone Screen Negative (NEGATIVE) Ur EDDP (Meth Metab) Negative (NEGATIVE) Ur Barbiturates Screen Negative (NEGATIVE) Ur Tricyclics Screen Negative (NEGATIVE) Ur Amphetamine Screen Negative (NEGATIVE) U Methamphetamines Scrn Negative (NEGATIVE) Urine MDMA Screen Positive H (NEGATIVE) U Benzodiazepines Scrn Negative (NEGATIVE) U Cocaine Metab Screen Negative (NEGATIVE) U Marijuana (THC) Screen Positive H (NEGATIVE) Ethyl Alcohol < 3.000 H (0.000-0.080) g/dL SARS-CoV-2 RNA (DAMIAN) (NEGATIVE) 03/02/21 Range/Units 03:48 WBC (4.0-10.2) K/uL RBC (3.77-5.09) M/uL Hgb (11.7-15.5) g/dL Hct (34.0-46.0) % MCV (84.0-98.0) fL MCH (28.2-33.3) pg MCHC (31.7-36.0) g/dL RDW (11.2-14.1) % Plt Count (150-350) K/uL Neut % (Auto) (45.0-80.0) % Lymph % (Auto) (10.0-50.0) % [place] % (Auto) (2.0-14.0) % Eos % (Auto) (0.0-5.0) % Baso % (Auto) (0.0-2.0) % Neut # (Auto) (1.40-7.00) K/uL Lymph # (Auto) (0.50-3.50) K/uL [place] # (Auto) (0.00-1.00) K/uL Eos # (Auto) (0.00-0.50) K/uL Baso # (Auto) (0.00-0.20) K/uL PT (9.5-12.0) SEC INR APTT (24.5-32.8) SEC Sodium (136-145) mmol/L Potassium (3.5-5.1) mmol/L Chloride (98-107) mmol/L Carbon Dioxide (21.0-32.0) mmol/L BUN (7-18) mg/dL Creatinine (0.51-1.17) mg/dL Est Cr Clr Drug Dosing mL/min Estimated GFR (MDRD) mL/min Glucose (70-99) mg/dL Lactic Acid (0.4-2.0) mmol/L Uric Acid (2.6-7.2) mg/dL Calcium (8.5-10.1) mg/dL Magnesium (1.8-2.4) mg/dL Total Bilirubin (0.2-1.0) mg/dL AST (15-37) U/L ALT (12-78) U/L Alkaline Phosphatase (46-116) IU/L Total Protein (6.4-8.2) g/dL Albumin (3.4-5.0) g/dL Amylase (25-115) U/L Lipase (73-393) U/L HCG, Qual (NEGATIVE) Specimen Type Urine Color Urine Appearance Urine pH (5.0-9.0) Ur Specific [place] (1.005-1.030) Urine Protein (NEGATIVE) mg/dL Urine Glucose (UA) (NEGATIVE) mg/dL Urine Ketones (NEGATIVE) mg/dL Urine Occult Blood (NEGATIVE) Urine Nitrite (NEGATIVE) Urine Bilirubin (NEGATIVE) Urine Urobilinogen (0.2-1.0) E.U./dL Ur Leukocyte Esterase (NEGATIVE) Urine RBC /HPF Urine WBC /HPF Ur Epithelial Cells /LPF Urine Bacteria (NONE TO FEW) /HPF Urine Mucus (NEGATIVE) /LPF Urine Opiates Screen (NEGATIVE) Ur Buprenorphine Scrn (NEGATIVE) Ur Oxycodone Screen (NEGATIVE) Ur EDDP (Meth Metab) (NEGATIVE) Ur Barbiturates Screen (NEGATIVE) Ur Tricyclics Screen (NEGATIVE) Ur Amphetamine Screen (NEGATIVE) U Methamphetamines Scrn (NEGATIVE) Urine MDMA Screen (NEGATIVE) U Benzodiazepines Scrn (NEGATIVE) U Cocaine Metab Screen (NEGATIVE) U Marijuana (THC) Screen (NEGATIVE) Ethyl Alcohol (0.000-0.080) g/dL SARS-CoV-2 RNA (DAMIAN) Negative (NEGATIVE) Med Orders - Current: Current Medications Acetaminophen (Acetaminophen 325 Mg Tab) 650 mg PO Q4H PRN PRN Reason: Pain Famotidine (Famotidine 20 Mg/2 Ml Sdv) 20 mg IVPUSH Q12H [facility] Potassium Chloride/Dextrose/Sod Cl (D5 1/2 Ns W/ 20 Meq/L Kcl) 1,000 mls @ 75 mls/hr IV ASDIRECTED [facility] Last Admin: 03/02/21 07:01 Dose: 75 mls/hr Documented by: Ceftriaxone Sodium 1 gm/ (Sodium Chloride) 100 mls @ 200 mls/hr IV Q12H [facility] Last Admin: 03/02/21 05:31 Dose: 200 mls/hr Documented by: Metronidazole 500 mg/ Premix 100 mls @ 100 mls/hr IV Q8H [facility] Last Admin: 03/02/21 13:40 Dose: 100 mls/hr Documented by: Ondansetron HCl (Ondansetron 4 Mg/2 Ml Sdv) 4 mg IVPUSH Q6H PRN PRN Reason: Nausea/Vomiting Last Admin: 03/02/21 11:32 Dose: 4 mg Documented by: Pantoprazole Sodium (Pantoprazole 40 Mg Vial) 40 mg IVPUSH Q12H [facility] Last Admin: 03/02/21 14:57 Dose: 40 mg Documented by: Sodium Chloride (Sodium Chloride 0.9% 10 Ml Syringe) 10 ml FLUSH ASDIRECTED PRN PRN Reason: Keep Vein Open Last Admin: 03/02/21 14:59 Dose: 10 ml Documented by: Sodium Chloride (Sodium Chloride 0.9% 10 Ml Syringe) 10 ml FLUSH Q12HR [facility] Last Admin: 03/02/21 07:02 Dose: 10 ml Documented by: Temazepam (Temazepam 15 Mg Cap) 15 mg PO DAILY@2000 PRN PRN Reason: Insomnia Discontinued Medications Al Hydroxide/Mg Hydroxide (Gi Cocktail Oral Solution 30 Ml) 30 ml PO ONETIME ONE Stop: 03/02/21 04:22 Last Admin: 03/02/21 04:35 Dose: 30 ml Documented by: Famotidine (Famotidine 20 Mg/2 Ml Sdv) 40 mg IVPUSH ONETIME ONE Stop: 03/02/21 03:31 Last Admin: 03/02/21 03:48 Dose: 40 mg Documented by: Lactated Ringer's (Ringers, Lactated) 1,000 mls @ 999 mls/hr IV .BOLUS ONE Stop: 03/02/21 04:30 Last Admin: 03/02/21 03:48 Dose: 999 mls/hr Documented by: Ceftriaxone Sodium 1 gm/ (Sodium Chloride) 100 mls @ 200 mls/hr IV Q12H [facility] Metronidazole 500 mg/ Premix 100 mls @ 100 mls/hr IV Q8H [facility] Ondansetron HCl (Ondansetron 4 Mg/2 Ml Sdv) 4 mg IVPUSH ONETIME ONE Stop: 03/02/21 03:31 Last Admin: 03/02/21 03:48 Dose: 4 mg Documented by: Pantoprazole Sodium (Pantoprazole 40 Mg Vial) 40 mg IVPUSH ONETIME ONE Stop: 03/02/21 03:31 Last Admin: 03/02/21 03:48 Dose: 40 mg Documented by: - Exam General: Reports: Alert, Oriented, Cooperative, No Acute Distress HEENT: Reports: Pupils Equal, Pupils Reactive, EOMI, Mucous Membr. Moist/[place] Neck: Reports: Supple Lungs: Reports: Clear to Auscultation, Normal Respiratory Effort Cardiovascular: Reports: Regular Rate, Regular Rhythm GI/Abdominal Exam: Normal Bowel Sounds, Soft, Non-Tender, No Distention (Female) Exam: Deferred Rectal (Female) Exam: Deferred Back Exam: Reports: Normal Inspection Extremities: Normal Range of Motion, Non-Tender, Normal Capillary Refill Skin: Reports: Warm, Dry Neurological: Reports: No New Focal Deficit Psy/Mental Status: Reports: Alert, Normal Affect, Normal Mood
[2021-03-02] MEDS ORDERED: Temazepam 15 MG Cap PO PRN (20:00)
--- NOTE | 2021-03-02 20:41 | PCM.SN.2 ---
- Free Text/Narrative Note: Patient given to go bottle of Zofran ODT to take one tab every 6 hours as needed for nausea.
[2021-03-03] MEDS ORDERED: cefTRIAXone 1 GM in Sodium Chloride 0.9% 100 ML IV SCH (05:00)
[2021-03-03] MEDS ORDERED: Famotidine 20 MG/2 ML SDV IVPUSH SCH (05:00)
[2021-03-03] MEDS ORDERED: metroNIDAZOLE/Normal Saline 500 MG in Premix Bag 1 BAG IV SCH (05:00)
== END 2021-03-02 20:02 | disposition home or self-care (01) ==
LOC: LL.ED 03:15 → LL.MS 04:40
PROVIDERS: ADMIT Family Medicine; ATTEND Family Medicine
DX: R10.9 Unspecified abdominal pain (principal); I10 Essential (primary) hypertension; F17.210 Nicotine dependence, cigarettes, uncomplicated; Z98.890 Other specified postprocedural states; Z20.822 Contact with and (suspected) exposure to COVID-19
CPT/HCPCS: 74022; 80053; 80305-QW; 80307; 81001; 82150; 83605; 83690; 83735; 84550; 84703; 85025; 85610; 85730; 87086; 96365; 96366; 96367; 96374; 96375; 96376; 99236; 99285-25; A9270-GY; C9113; G0378; J0696; J2405; J3480; J3490; J7120; U0002

== ENCOUNTER 2021-04-04 15:03 | Emergency (ER) | payer MEDICAID ==
--- NOTE | 2021-04-04 15:21 | EDM.PDOC ---
ED HPI GENERAL MEDICAL PROBLEM - General Chief Complaint: Behavioral/Psych Stated Complaint: Behvioral/Psych Time Seen by Provider: 04/04/21 15:06 Source of Information: Reports: Police - History of Present Illness INITIAL COMMENTS - FREE TEXT/NARRATIVE: Su is a 30 y/o female who is brought to the ER by police after she was picked up at the [facility] in [facility]. She had went into the [facility] and was crying and upset and would not talk to staff there. She then walked back into the personalized living manager's office and the personalized living manager called 911. According to the police, there was a call this AM that this individual had gotten out of the passenger's side of a PT Cruiser and then started walking and the care drove away. The [employer] Cruiser or car driver have not been located. Police bring the patient to the ER for evaluation. She is crying and hyperventilating, but will not answer questions. - Related Data Allergies Allergy/AdvReac Type Severity Reaction Status Date / Time No Known Drug Allergies Allergy Other Verified 02/07/21 13:42 Home Meds: Home Meds . [No Known Home Meds] 04/08/20 [History] . [No Known Home Meds] 04/25/20 [History] Past Medical History - Past Health History Medical/Surgical History: Denies Medical/Surgical History HEENT History: Reports: Impaired Vision, Other (See Below) Other HEENT History: The patient wears soft contact lenses and glasses. Cardiovascular History: Reports: Hypertension, Other (See Below) Other Cardiovascular History: She does not know her cholesterol status. Respiratory History: Reports: None Gastrointestinal History: Reports: Diverticulosis, Other (See Below) Other Gastrointestinal History: Recurrent nonspecific abdominal pain with no history of diverticulitis. Genitourinary History: Reports: None ADMITTED ATTORNEYS History: Reports: Other ADMITTED ATTORNEYS History: LMP 1 week ago, which was normal. Full term without complications during pregnancies or deliveries Musculoskeletal History: Reports: Fracture, Other (See Below) Other Musculoskeletal History: Phalangeal fracture of digit number one of the right foot in 2008. Neurological History: Reports: None Psychiatric History: Reports: Anxiety, Depression, Psych Hospitalization(s) Endocrine/Metabolic History: Reports: None Hematologic History: Reports: None Immunologic History: Reports: None Oncologic (Cancer) History: Reports: None Dermatologic History: Reports: Other (See Below) Other Dermatologic History: Acne vulgaris - Infectious Disease History Infectious Disease History: Reports: Chicken Pox - Past Surgical History Head Surgeries/Procedures: Reports: None HEENT Surgical History: Reports: Oral Surgery, Other (See Below) Other HEENT Surgeries/Procedures: [place] teeth extraction x2 at age 19 with additional multiple teeth extractions. Cardiovascular Surgical History: Reports: None Respiratory Surgical History: Reports: None Female Surgical History: Reports: None Endocrine Surgical History: Reports: None Neurological Surgical History: Reports: None Musculoskeletal Surgical History: Reports: ORIF, Other (See Below) Other Musculoskeletal Surgeries/Procedures:: ORIF of right toe fracture in 2009. Oncologic Surgical History: Reports: None Dermatological Surgical History: Reports: None - Past Imaging History Past Imaging History: Reports: CAT Scan (CT of the abdomen and pelvis on 04/25/2020.), Ultrasound (Pelvic on 04/25/2020.) Social & Family History - Family History Family Medical History: Unobtainable - Caffeine Use Caffeine Use: Reports: Soda - Living Situation & Occupation Living situation: Reports: (2012), with Family ( with her son being adopted by the patient's father secondary special needs of her son) Occupation: Unemployed Review of Systems - Review of Systems Review Of Systems: Unable To Obtain Reason Not Obtained: Suspected Drug use ED EXAM, GENERAL - Physical Exam Exam: See Below General Appearance: Alert, Anxious (Adult female. She is sitting on the edge of the ER with an emesis bag in her hands and hyperventilating. Patient becomes agressive when HOUSING MANAGEMENT OFFICER attempts to examine her.) Nose: Normal Inspection Head: Atraumatic, Normocephalic Respiratory/Chest: No Respiratory Distress Neurological: Alert Psychiatric: Anxious, Tearful Skin Exam: Warm, Dry, Normal Color Course - Vital Signs Text/Narrative:: 1506 Patient was seen by the HOUSING MANAGEMENT OFFICER on arrival. Course of events gotten from [employer] police officer. Patient gets very upset and yells when HOUSING MANAGEMENT OFFICER attempts to examine her. Labs ordered. Patient ambulated into the ER with stand by assist of [employer] police officer. 1545 Patient continues to refuse any cares. [place] [employer] requests that attempt be made to transfer to [facility]. [employer] contacted and will not review case without labs and further assessment. No services available here. Patient has not done anything to harm herself of given reasons for staff to place her on a hold. Patient cleared for discharge with law enforcement since she refuses all cares. - Orders/Labs/Meds Orders: Active Orders 24 hr Category Date Time Status EKG Documentation Completion [RC] ASDIRECTED Care 04/04/21 15:15 Ordered EKG Documentation Completion [RC] STAT Care 04/04/21 15:14 Ordered ACETAMINOPHEN [CHEM] Stat Lab 04/04/21 15:14 Ordered AMYLASE [CHEM] Stat Lab 04/04/21 15:14 Ordered CBC WITH AUTO DIFF [HEME] Stat Lab 04/04/21 15:14 Ordered COMPREHENSIVE METABOLIC PN,CMP [CHEM] Stat Lab 04/04/21 15:14 Ordered CORONAVIRUS COVID-19 PCR PHL Stat Lab 04/04/21 15:15 Ordered DRUG SCREEN, URINE [URCHEM] Stat Lab 04/04/21 15:16 Ordered ETHANOL BLOOD MEDICAL [CHEM] Stat Lab 04/04/21 15:14 Ordered LIPASE [CHEM] Stat Lab 04/04/21 15:14 Ordered MAGNESIUM [CHEM] Stat Lab 04/04/21 15:14 Ordered SALICYLATE [REF] Stat Lab 04/04/21 15:14 Ordered TROPONIN I [CHEM] Stat Lab 04/04/21 15:14 Ordered TSH ULTRASENSITIVE [CHEM] Stat Lab 04/04/21 15:14 Ordered UA RFX MAGDIEL AND CULT IF INDIC [URIN] Stat Lab 04/04/21 15:14 Ordered Urine [HCG QUALITATIVE,URINE] [URCHEM] Stat Lab 04/04/21 15:14 Ordered EKG 12 Lead [EK] Stat Ther 04/04/21 15:14 Ordered Departure - Departure Time of Disposition: 15:51 [facility]position: [facility] Clinical Impression: History of drug use, Uncooperative behavior - Discharge Information Referrals: PCP,Unknown [Primary Care Provider] - Forms: ED Department Discharge Additional Instructions: -Cleared for discharge from ER with Law Enforcement - My Orders Last 24 Hours: My Active Orders 04/04/21 15:14 EKG Documentation Completion [RC] STAT ACETAMINOPHEN [CHEM] Stat AMYLASE [CHEM] Stat CBC WITH AUTO DIFF [HEME] Stat COMPREHENSIVE METABOLIC PN,CMP [CHEM] Stat ETHANOL BLOOD MEDICAL [CHEM] Stat LIPASE [CHEM] Stat MAGNESIUM [CHEM] Stat SALICYLATE [REF] Stat TROPONIN I [CHEM] Stat TSH ULTRASENSITIVE [CHEM] Stat UA RFX MAGDIEL AND CULT IF INDIC [URIN] Stat Urine [HCG QUALITATIVE,URINE] [URCHEM] Stat EKG 12 Lead [EK] Stat 04/04/21 15:15 EKG Documentation Completion [RC] ASDIRECTED CORONAVIRUS COVID-19 PCR PHL Stat 04/04/21 15:16 DRUG SCREEN, URINE [URCHEM] Stat - Assessment/Plan Last 24 Hours: My Active Orders 04/04/21 15:14 EKG Documentation Completion [RC] STAT ACETAMINOPHEN [CHEM] Stat AMYLASE [CHEM] Stat CBC WITH AUTO DIFF [HEME] Stat COMPREHENSIVE METABOLIC PN,CMP [CHEM] Stat ETHANOL BLOOD MEDICAL [CHEM] Stat LIPASE [CHEM] Stat MAGNESIUM [CHEM] Stat SALICYLATE [REF] Stat TROPONIN I [CHEM] Stat TSH ULTRASENSITIVE [CHEM] Stat UA RFX MAGDIEL AND CULT IF INDIC [URIN] Stat Urine [HCG QUALITATIVE,URINE] [URCHEM] Stat EKG 12 Lead [EK] Stat 04/04/21 15:15 EKG Documentation Completion [RC] ASDIRECTED CORONAVIRUS COVID-19 PCR PHL Stat 04/04/21 15:16 DRUG SCREEN, URINE [URCHEM] Stat Assessment:: 1)Hx Drug Use 2)Uncooperative Behavior Plan: -Cleared to leave with law enforcement
== END 2021-04-04 16:21 ==
LOC: LL.ED 15:03
DX: F91.8 Other conduct disorders (principal); I10 Essential (primary) hypertension
CPT/HCPCS: 99283; 99284-25

== ENCOUNTER 2022-04-02 18:55 | Emergency (ER) | payer MEDICAID ==
[2022-04-02 19:58] LABS: ANION GAP 16.9 meq/L (7-15); CHLORIDE,CL 102 mmol/L (98-107); SODIUM,NA 140 mmol/L (136-145)
[2022-04-02 19:59] LABS: ESTIMATED GFR 70 mL/min (>=60)
[2022-04-02 20:03] LABS: BARBITURATE SCREEN,URINE NEGATIVE (NEGATIVE); BENZODIAZEPINES SCREEN,URINE POSITIVE (NEGATIVE); EDDP,URINE SCREEN NEGATIVE (NEGATIVE); TCA SCREEN,URINE NEGATIVE (NEGATIVE); THC SCREEN,URINE 50 NG/ML POSITIVE (NEGATIVE)
[2022-04-02 20:05] LABS: BUPRENORPHINE SCREEN,URINE NEGATIVE (NEGATIVE)
== END 2022-04-02 20:20 ==
LOC: LL.ED 18:55
DX: F19.10 Other psychoactive substance abuse, uncomplicated (principal); I10 Essential (primary) hypertension; Z72.0 Tobacco use
CPT/HCPCS: 36415; 80053; 80305-QW; 80307; 84703; 85025; 99283

== ENCOUNTER 2022-05-10 07:03 | Emergency (ER) | payer MEDICAID | END 2022-05-10 08:44 | disposition home or self-care (01) | LOC: LL.ED 07:03 | DX: S00.33XA Contusion of nose, initial encounter (principal); I10 Essential (primary) hypertension; W18.09XA Striking against other object with subsequent fall, initial encounter | CPT/HCPCS: 70450; 70486; 99283; 99284 ==